=== PATIENT | female | born 1990 | race Caucasian/White ===

== ENCOUNTER 2016-12-04 05:31 | Emergency (ER) | payer OTHER ==
[~2016-12-04] VITALS: Ht 165.1 cm; Wt 60.2 kg
[~2016-12-04 05:31] MED LIST: ABILIFY2 MG PO; ABILIFY5 MG PO; BACTERICIN30 GM TP; CLEOCIN300 MG PO; MOTRIN400 MG PO; NAPROSYN500 MG PO; PRENATAL1 EACH PO; TYLENOL EXTRA500 MG PO; VICODIN 5-3001 EACH PO
[2016-12-04] MEDS ORDERED: BACTRIM,SEPT1 TABLET PO (06:16)
[2016-12-04 06:21] VITALS: BP 131/96
== END 2016-12-04 06:21 | disposition home or self-care (01) ==
LOC: EME 05:31
DX: K13.0 Diseases of lips (principal); L08.9 Local infection of the skin and subcutaneous tissue, unspecified; F17.200 Nicotine dependence, unspecified, uncomplicated; Z88.0 Allergy status to penicillin
CPT/HCPCS: 99281; 99284